=== PATIENT | female | born 1965 | race Two or more races ===

== ENCOUNTER 2019-04-05 02:41 | Emergency (ER) | payer SELFPAY ==
[~2019-04-05] VITALS: Ht 152.4 cm; Wt 81.6 kg
--- NOTE | 2019-04-05 03:43 | PHYS DOC ---
Past Medical History Past Medical History: High Cholesterol, Hypertension Additional Past Medical Histor: TBI IN OCTOBER 2018 Past Surgical History: Other Additional Past Surgical Histo: FALLOPIAN TUBE Alcohol Use: None Drug Use: None Adult General Chief Complaint Chief Complaint: NAUSEA/VOMITING/DIARRHA HPI HPI Patient is a 53 year old male presents with epigastric pain, nausea vomiting �2 and fullness sensation in throat. Patient states she has history of acid reflux which she feels caused her to vomit. She currently denies abdominal pain and nausea but reports persistent pain and burning in throat. Patient also reports migraine headache which resolved 5 hours prior to arrival. She is concerned about her blood pressure which is in the 170s over 90s. Patient has a history of hypertension dyslipidemia and took milligrams of Norvasc at 8 PM this evening. Denies chest pain palpitations, shortness of breath nausea and sweats. No other acute symptoms or complaints. [] Review of Systems Review of Systems Review symptoms as per history of present illness. All other review symptoms are negative. All other systems were reviewed and found to be within normal limits, except as documented in this note. Current Medications Current Medications Current Medications Medications (Trade) Dose Ordered Sig/Marlen Start Time Stop Time Status Last Admin Dose Admin Al Hydroxide/Mg Hydroxide (Mylanta Plus Xs) 30 ml 1X ONCE 04/05/19 04:00 04/05/19 04:01 DC 04/05/19 04:09 30 ML Famotidine (Pepcid) 20 mg 1X ONCE 04/05/19 03:45 04/05/19 03:53 DC 04/05/19 03:47 20 MG Multi-Ingredient Mouthwash/Gargle (Gi Cocktail) 20 ml 1X ONCE 04/05/19 04:15 04/05/19 04:18 DC 04/05/19 04:17 20 ML Ondansetron HCl (Zofran Odt) 4 mg 1X ONCE 04/05/19 03:45 04/05/19 03:53 DC 04/05/19 03:47 4 MG Allergies Allergies Allergies Coded Allergies Type Severity Reaction Last Updated Verified No Known Drug Allergies 04/05/19 No Physical Exam Physical Exam Constitutional: Well developed, well nourished, no acute distress, non-toxic appearance. [] HENT: Normocephalic, atraumatic, bilateral external ears normal, oropharynx moist, no oral exudates, nose normal. [] Eyes: PERRLA, EOMI, conjunctiva normal, no discharge. [] Neck: Normal range of motion, no tenderness, supple, no stridor. [] Cardiovascular:Heart rate regular rhythm, no murmur [] Lungs & Thorax: Bilateral breath sounds clear to auscultation [] Abdomen: Bowel sounds normal, soft, no tenderness, no masses. [] Skin: Warm, dry, no erythema, no rash. [] Back: No tenderness, no CVA tenderness. [] Extremities: No tenderness, no edema. [] Neurologic: Alert and oriented, normal motor function, normal sensory function, no focal deficits noted. [] Psychologic: Affect normal, judgement normal, mood normal. [] Current Patient Data Vital Signs Vital Signs Date Time Temp Pulse Resp B/P (MAP) Pulse Ox O2 Delivery O2 Flow Rate FiO2 04/05/19 02:45 98.7 78 16 184/78 (113) 98 Room Air 98.7 EKG EKG [] Radiology/Procedures Radiology/Procedures [] Course & Med Decision Making Course & Med Decision Making Pertinent Labs and Imaging studies reviewed. (See chart for details) [Pepcid Zofran and GI cocktail given. Symptoms fully resolved. Blood pressure improved. Patient placed follow-up with PCP later this morning..] Dragon Disclaimer Dragon Disclaimer This electronic medical record was generated, in whole or in part, using a voice recognition dictation system. Departure Departure Impression: Primary Impression: Heartburn Additional Impression: Esophagitis Disposition: 01 HOME, SELF-CARE Condition: IMPROVED Referrals: NON,STAFF (PCP) Patient Instructions: Esophagitis, Heartburn, [id number] Additional Instructions: Please take newly prescribed medications as directed. Avoid alcohol spicy foods and eating 3 hours prior to bedtime. Follow-up with your PCP early next week for reevaluation. Return to the ED if new or worsening symptoms. Scripts Famotidine (PEPCID) 20 Mg Tablet 20 MG PO BID, #60 TAB Prov: RYANN PEDRAZA DO 04/05/19 Problem Qualifiers RYANN PEDRAZA DO Apr 05, 2019 03:43
[2019-04-05] MEDS ORDERED: FAMOTIDINE 20 MG TABLET. PO ONE (03:45)
[2019-04-05] MEDS ORDERED: ONDANSETRON ODT 4 MG TAB.RAPDIS. PO ONE (03:45)
[2019-04-05] MEDS ORDERED: MAG HYDROX/ALUMINUM HYD/SIMETH 30 ML ORAL.SUSP PO ONE (04:00)
[2019-04-05] MEDS ORDERED: LIDO:MAALOX 1:1 20 ML SINGLE DOSE. PO ONE (04:15)
[2019-04-05 04:18] VITALS: BP 149/77
[2019-04-05] MEDS ORDERED: FAMO-63 PO (04:34)
== END 2019-04-05 04:45 | disposition home or self-care (01) ==
LOC: ER 02:41
DX: K20.9 Esophagitis, unspecified (principal); R12 Heartburn; E78.00 Pure hypercholesterolemia, unspecified; I10 Essential (primary) hypertension; Z87.820 Personal history of traumatic brain injury
CPT/HCPCS: 99284; Q0162